=== PATIENT | female | born 1955 | race Caucasian/White ===

== ENCOUNTER 2017-10-11 14:42 | Emergency (ER) | payer MEDICARE, MEDICAID ==
[~2017-10-11] VITALS: Ht 162.6 cm; Wt 45.5 kg
[~2017-10-11 14:42] MED LIST: ALPR0.254 PO; ALPR1TAB PO; ALPR1TAB6 PO; AMLO5TAB4 PO; ASPI-515 PO; BISA10SU65 PR; CALC-141 PO; CARVEDILOL PO; CLON0.5T PO; DRON5CAP PO; ELAVIL PO; FENT1PAT77 EXT; FIORICET PO; FLUO40CA9 PO; FURO-93 PO; FURO20TA3 PO; HYDR12.58 PO; IBUP-1484 PO; METH-356 PO; MULT-516 PO; OMEP40CA6 PO; ONDA4TAB10 PO; ONDA8TAB16 SL; OXYC-307 PO; OXYC5TAB2 PO; PENT100C2; POLY17PO5 PO; POTA10TA PO; POTA20TA14 PO; PRAV10TA2 PO; SENN1TAB7 PO; SPIR25TA3 PO; SPIR50TA2 PO; SULF1TAB24 PO; TIZA2CAP2 PO; TIZA4TAB PO; ZANAFLEX PO
[2017-10-11] MEDS ORDERED: ACETAMINOPHEN 325 MG TABLET PO ONE (15:30)
[2017-10-11] MEDS ORDERED: SODIUM CHLORIDE FLUSH 10ML SYR IVF ONE (15:30)
[2017-10-11] MEDS ORDERED: SODIUM CHLORIDE 0.9% 1,000ML IVBOLUS ONE (15:30)
[2017-10-11] MEDS ORDERED: ONDANSETRON ODT 4 MG ONE (15:34)
[2017-10-11 15:41] LABS: BASOPHILS # (AUTO) 0.04 x10^3/uL (0-0.1); BASOPHILS % (AUTO) 0 % (0-1); EOSINOPHILS # (AUTO) 0.04 x10^3/uL (0-0.4); EOSINOPHILS % (AUTO) 0 % (1-7); LYMPHOCYTES # (AUTO) 0.76 x10^3/uL (1-3.4); LYMPHOCYTES % (AUTO) 6 % (22-44); MD NO; MEAN CORPUSCULAR HEMOGLOBIN 29.8 pg (27.0-34.8); MEAN CORPUSCULAR HGB CONC 33.3 g/dL (32.4-35.8); MEAN CORPUSCULAR VOLUME 89.6 fL (80-100); MEAN PLATELET VOLUME 6.7 fL (7.4-10.4); MONOCYTES # (AUTO) 0.85 x10^3/uL (0.2-0.8); MONOCYTES % (AUTO) 7 % (2-9); NEUTROPHILS # (AUTO) 10.23 x10^3/uL (1.8-6.8); NEUTROPHILS % (AUTO) 86 % (42-75); PLATELET COUNT 395 x10^3/uL (130-400); RED BLOOD COUNT 3.05 x10^6/uL (3.82-5.3); RED CELL DISTRIBUTION WIDTH 16.3 % (9.6-15.2)
[2017-10-11 15:47] LABS: ALBUMIN 2.4 g/dL (3.4-5.0); ANION GAP 7 mmol/L (5-15); CALCIUM 8.3 mg/dL (8.5-10.1); CHLORIDE 109 mmol/L (98-107); CREATININE 0.66 mg/dL (0.55-1.02)
[2017-10-11] MEDS ORDERED: ONDANSETRON ODT 4 MG PO ONE (16:00)
[2017-10-11] MEDS ORDERED: ACETAMINOPHEN 325 MG TABLET ONE (17:17)
[2017-10-11] MEDS ORDERED: LORazepam 1MG TABLET ONE (17:17)
[2017-10-11] MEDS ORDERED: LORazepam 1MG TABLET PO ONE (17:30)
[2017-11-01] MEDS ORDERED: furosemide (10:13)
[2017-11-01] MEDS ORDERED: symbicort (10:13)
== END 2017-10-11 17:55 | disposition home or self-care (01) ==
LOC: MERGE 14:42 → ED 17:15 → MERGE 17:15 → ED 17:55
DX: F41.1 Generalized anxiety disorder (principal); E86.0 Dehydration; F13.239 Sedative, hypnotic or anxiolytic dependence with withdrawal, unspecified; F11.23 Opioid dependence with withdrawal; R91.1 Solitary pulmonary nodule; J44.9 Chronic obstructive pulmonary disease, unspecified; I10 Essential (primary) hypertension
CPT/HCPCS: 36415; 71045; 80048; 82040; 85025; 93005; 96360; 99285; J7030; Q0162

== ENCOUNTER → 2018-03-08 | Outpatient (CLI) | payer MEDICARE, OTHER ==
[~2018-03-08] MED LIST changes: +ALBU2.5V NPPB; +ALPR-475 PO; +CALC1TAB68 PO; +DIPH25CA61 PO; +DRON5CAP15 PO; +EPIN1AMP IVPush; +FLUO20CA8 PO; +HYDR-3653 PO; +LORA-445 PO; +OMEP-110 PO; +POTA8TAB PO; -SENN1TAB7 PO; +SENN1TAB8 PO; +SIME80TA16 PO; -SPIR25TA3 PO; +SPIR25TA5 PO; -SPIR50TA2 PO; +SPIR50TA4 PO; +furosemide; +symbicort
== END | disposition home or self-care (01) ==
LOC: ROC 09:02
PROVIDERS: ATTEND Radiology Radiation Oncology
DX: Z02.9 Encounter for administrative examinations, unspecified (principal)

== ENCOUNTER 2018-04-29 13:29 | Emergency (ER) | payer MEDICARE, MEDICAID ==
[~2018-04-29] VITALS: Ht 160 cm; Wt 56.0 kg
[~2018-04-29 13:29] MED LIST changes: -HYDR12.58 PO; +HYDROCHLOROTH12.5 MG PO; +LIDO700A20 TD
[2018-04-29] MEDS ORDERED: BUDE10.2 INH (14:10)
[2018-04-29 17:33] VITALS: BP 113/67
== END 2018-04-29 18:16 | disposition home or self-care (01) ==
LOC: ED 14:01
DX: S22.031A Stable burst fracture of third thoracic vertebra, initial encounter for closed fracture (principal); S22.041A Stable burst fracture of fourth thoracic vertebra, initial encounter for closed fracture; S22.051A Stable burst fracture of T5-T6 vertebra, initial encounter for closed fracture; S22.081A Stable burst fracture of T11-T12 vertebra, initial encounter for closed fracture; E78.5 Hyperlipidemia, unspecified; K21.9 Gastro-esophageal reflux disease without esophagitis; I50.9 Heart failure, unspecified; I25.2 Old myocardial infarction; Z87.891 Personal history of nicotine dependence; Z85.9 Personal history of malignant neoplasm, unspecified; X58.XXXA Exposure to other specified factors, initial encounter; Y93.89 Activity, other specified; Y92.89 Other specified places as the place of occurrence of the external cause; Y99.8 Other external cause status
CPT/HCPCS: 72128; 99284

== ENCOUNTER → 2018-06-08 | Outpatient (CLI) | payer MEDICARE, MEDICAID ==
[~2018-06-08] MED LIST changes: +BUDE10.2 INH; -METH-356 PO; +METH10TA2 PO
== END | disposition home or self-care (01) ==
LOC: CFH 11:01
PROVIDERS: ATTEND Radiology Radiation Oncology
DX: J98.11 Atelectasis (principal); M48.54XA Collapsed vertebra, not elsewhere classified, thoracic region, initial encounter for fracture; R91.1 Solitary pulmonary nodule; M43.8X4 Other specified deforming dorsopathies, thoracic region; Z85.118 Personal history of other malignant neoplasm of bronchus and lung
CPT/HCPCS: 71250

== ENCOUNTER 2018-08-27 10:15 | Outpatient (CLI) | payer MEDICARE, MEDICAID ==
[~2018-08-27 10:15] MED LIST changes: +SENN-177 PO; -SENN1TAB8 PO
== END 2018-08-27 23:59 | disposition home or self-care (01) ==
LOC: ROC 10:15
PROVIDERS: ATTEND Radiology Radiation Oncology
DX: C34.91 Malignant neoplasm of unspecified part of right bronchus or lung (principal); Z88.8 Allergy status to other drugs, medicaments and biological substances
CPT/HCPCS: G0463